=== PATIENT | female | born 1980 | race Caucasian/White ===

== ENCOUNTER → 2016-10-12 | Outpatient (CLI) | payer OTHER ==
[~2016-10-12] MED LIST: ABILIFY10 MG PO; ANTIVERT25 MG PO; AUGMENTIN 875875 MG PO; CLARITIN10 MG PO; DELTASONE20 M1 PO; HYCODAN 1.5 MG480 M1 PO; LAMICTAL150 MG PO; MOTRIN800 MG PO; NKHM; OMNICEF300 MG PO; PROAIR HFA8.5 GM INH; PROZAC20 MG PO; PROZAC40 M1 PO; Synthroid,Lev100 MCG PO; TESSALON PERLE100 M1 PO; TRAMADOL HCL50 MG PO; ZADITOR 5 ML5 M1 OPH; Zofran4 MG PO
== END | disposition home or self-care (01) ==
LOC: RAD 13:57
DX: M54.5 Low back pain (principal)

== ENCOUNTER 2016-11-29 14:55 | Emergency (ER) | payer OTHER ==
[~2016-11-29] VITALS: Ht 157.4 cm; Wt 83.9 kg
[2016-11-29 15:07] VITALS: BP 135/68
[2016-11-29] MEDS ORDERED: CYCLOBENZAPRINE10 MG PO (15:07)
[2016-11-29] MEDS ORDERED: LEVOTHYROXINE0.1 M1 PO (15:07)
[2016-11-29] MEDS ORDERED: FLUOXETINE HCL40 MG PO (15:07)
[2016-11-29] MEDS ORDERED: ZITHROMAX250 MG PO (16:08)
[2016-11-29] MEDS ORDERED: DELTASONE20 M1 PO (16:08)
== END 2016-11-29 16:13 | disposition home or self-care (01) ==
LOC: ED 14:55
DX: J40 Bronchitis, not specified as acute or chronic (principal); J45.909 Unspecified asthma, uncomplicated

== ENCOUNTER 2017-01-12 23:46 | Emergency (ER) | payer OTHER, MEDICAID ==
[~2017-01-12] VITALS: Ht 157.4 cm; Wt 83.9 kg
[~2017-01-12 23:46] MED LIST changes: +CYCLOBENZAPRINE10 MG PO; +FLUOXETINE HCL40 MG PO; +LEVOTHYROXINE0.1 M1 PO; +ZITHROMAX250 MG PO
[2017-01-12 23:51] VITALS: BP 131/85
[2017-01-12] MEDS ORDERED: PROZAC40 M1 PO (23:52)
[2017-01-12] MEDS ORDERED: LEVOTHYROXINE0.1 M1 PO (23:52)
[2017-01-13 00:26] LABS: BASO # 0.1 10*3/uL (0.0-0.1); BASO % 0.5 % (0.0-1.0); EOS # 0.2 10*3/uL (0.0-0.4); EOS % 1.6 % (1.0-4.0); HEMOGLOBIN 12.1 g/dl (12.0-16.0); LYMPH # 2.5 10*3/uL (1.3-4.4); LYMPH % 26.1 % (27.0-41.0); MEAN CELL VOLUME 82.2 fl (81.0-99.0); MEAN CORPUSCULAR HGB 27.6 pg (27.0-31.0); MEAN CORPUSCULAR HGB CONC 33.6 g/dl (33.0-37.0); MEAN PLATELET VOLUME 12.1 fl (9.6-12.3); MONO # 0.8 10*3/uL (0.1-1.0); MONO % 8.7 % (3.0-9.0); NEUT # 6.1 10*3/uL (2.3-7.9); NEUT % 62.8 % (47.0-73.0); PLATELET COUNT AUTOMATED 234 10*3/uL (130-400); RED BLOOD COUNT 4.38 10*6/uL (4.10-5.10); RED CELL DISTRI WIDTH 14.1 % (0-14.5); WHITE BLOOD COUNT 9.6 10*3/uL (4.8-10.8)
[2017-01-13 00:37] LABS: BUN 12 mg/dl (7-24); CARBON DIOXIDE 26 mmol/L (21-32); CHLORIDE 106 mmol/L (98-107); EST GLOM FILT AFRICAN AMERICAN > 60 ml/min; GLUCOSE 91 mg/dL (65-99); POTASSIUM 4.1 mmol/L (3.5-5.1); SODIUM 139 mmol/L (136-145)
[2017-01-13 00:43] LABS: C-REACTIVE PROTEIN < 0.29 MG/DL (0-0.3)
[2017-01-13] MEDS ORDERED: AMOXICILLIN500 M2 PO (01:02)
== END 2017-01-13 01:12 | disposition home or self-care (01) ==
LOC: ED 23:46
PROVIDERS: Emergency Medicine Emergency Medical Services
DX: I88.9 Nonspecific lymphadenitis, unspecified (principal); Z79.899 Other long term (current) drug therapy

== ENCOUNTER → 2017-01-15 | Outpatient (CLI) | payer OTHER, MEDICAID ==
[~2017-01-15] MED LIST changes: +AMOXICILLIN500 M2 PO
[2017-01-15 10:16] LABS: BASO % 0.4 % (0.0-1.0); EOS # 0.2 10*3/uL (0.0-0.4); HEMATOCRIT 38.9 % (37.0-47.0); HEMOGLOBIN 12.9 g/dl (12.0-16.0); LYMPH % 26.3 % (27.0-41.0); MEAN CELL VOLUME 83.3 fl (81.0-99.0); MEAN CORPUSCULAR HGB 27.6 pg (27.0-31.0); MEAN CORPUSCULAR HGB CONC 33.2 g/dl (33.0-37.0); MEAN PLATELET VOLUME 12.2 fl (9.6-12.3); MONO # 0.6 10*3/uL (0.1-1.0); MONO % 8.1 % (3.0-9.0); NEUT # 4.7 10*3/uL (2.3-7.9); NEUT % 63.1 % (47.0-73.0); PLATELET COUNT AUTOMATED 232 10*3/uL (130-400); RED BLOOD COUNT 4.67 10*6/uL (4.10-5.10); RED CELL DISTRI WIDTH 14.2 % (0-14.5); WHITE BLOOD COUNT 7.5 10*3/uL (4.8-10.8)
[2017-01-15 10:46] LABS: ALBUMIN 3.4 gm/dl (3.1-4.5); ALKALINE PHOSPHATASE 88 U/L (45-117); BILIRUBIN, TOTAL 0.5 mg/dl (0.2-1.0); BUN 9 mg/dl (7-24); CARBON DIOXIDE 25 mmol/L (21-32); CHLORIDE 107 mmol/L (98-107); CHOLESTEROL 179 mg/dL (<200); EST GLOM FILT AFRICAN AMERICAN > 60 ml/min; GLUCOSE 85 mg/dL (65-99); HDL CHOLESTEROL 50 mg/dl (40-60); LDL CHOLESTEROL 103 mg/dL (9-159); POTASSIUM 4.1 mmol/L (3.5-5.1); SGOT/AST 16 IU/L (3-35); SGPT/ALT 25 U/L (12-78); SODIUM 139 mmol/L (136-145); TOTAL PROTEIN 7.4 gm/dL (6.4-8.2); TRIGLYCERIDES 129 mg/dl (<150); VLDL CHOLESTEROL 26 mg/dL (6-40)
[2017-01-16 05:10] LABS: THYROID PEROXIDASE (TPO) AB 132 IU/mL (0-34)
[2017-01-18 15:08] LABS: THYROGLOBULIN ANTIBODY <1.0 IU/mL (0.0-0.9)
== END | disposition home or self-care (01) ==
LOC: LAB 09:54
PROVIDERS: Internal Medicine
DX: I88.9 Nonspecific lymphadenitis, unspecified (principal); E03.9 Hypothyroidism, unspecified; E06.3 Autoimmune thyroiditis; E66.09 Other obesity due to excess calories

== ENCOUNTER 2017-03-03 19:43 | Emergency (ER) | payer OTHER ==
[~2017-03-03] VITALS: Ht 157.4 cm; Wt 83.9 kg
[2017-03-03 20:07] VITALS: BP 128/68
[2017-03-03] MEDS ORDERED: AUGMENTIN 875875 MG PO (20:17)
[2017-03-03] MEDS ORDERED: FLONASE ALLERG9.9 ML NAS (20:17)
[2017-03-03] MEDS ORDERED: CLARITIN-D 24 H1 TAB PO (20:17)
== END 2017-03-03 20:53 | disposition home or self-care (01) ==
LOC: ED 19:43
DX: J01.10 Acute frontal sinusitis, unspecified (principal); Z79.899 Other long term (current) drug therapy

== ENCOUNTER 2017-07-04 21:56 | Emergency (ER) | payer OTHER ==
[~2017-07-04] VITALS: Ht 167.6 cm; Wt 68.0 kg
[~2017-07-04 21:56] MED LIST changes: +CLARITIN-D 24 H1 TAB PO; +FLONASE ALLERG9.9 ML NAS
[2017-07-04 22:15] VITALS: BP 154/84
[2017-07-04] MEDS ORDERED: HYCODAN/HYDROMET5 ML PO (23:45)
[2017-07-04] MEDS ORDERED: PROAIR HFA8.5 GM INH (23:45)
== END 2017-07-04 23:50 | disposition home or self-care (01) ==
LOC: ED 21:56
DX: R05 Cough (principal); F17.200 Nicotine dependence, unspecified, uncomplicated; Z79.899 Other long term (current) drug therapy

== ENCOUNTER 2017-10-03 13:00 | Emergency (ER) | payer OTHER ==
[~2017-10-03] VITALS: Ht 162.5 cm; Wt 65.8 kg
[~2017-10-03 13:00] MED LIST changes: +HYCODAN/HYDROMET5 ML PO
[2017-10-03] MEDS ORDERED: OMNICEF300 MG PO (13:19)
[2017-10-03] MEDS ORDERED: ZYRTEC10 MG PO (13:19)
[2017-10-03 13:32] VITALS: BP 112/60
== END 2017-10-03 13:26 | disposition home or self-care (01) ==
LOC: ED 13:00
DX: J06.9 Acute upper respiratory infection, unspecified (principal); H66.92 Otitis media, unspecified, left ear; Z79.899 Other long term (current) drug therapy

== ENCOUNTER → 2017-10-30 | Outpatient (CLI) | payer OTHER ==
[~2017-10-30] MED LIST changes: +ZYRTEC10 MG PO
[2017-10-30 10:50] LABS: BASO % 0.8 % (0.0-1.0); EOS # 0.1 10*3/uL (0.0-0.4); EOS % 2.4 % (1.0-4.0); HEMATOCRIT 39.8 % (37.0-47.0); HEMOGLOBIN 13.1 g/dl (12.0-16.0); LYMPH # 1.7 10*3/uL (1.3-4.4); LYMPH % 33.8 % (27.0-41.0); MEAN CELL VOLUME 84.5 fl (81.0-99.0); MEAN CORPUSCULAR HGB 27.8 pg (27.0-31.0); MEAN CORPUSCULAR HGB CONC 32.9 g/dl (33.0-37.0); MEAN PLATELET VOLUME 12.9 fl (9.6-12.3); MONO # 0.5 10*3/uL (0.1-1.0); MONO % 9.8 % (3.0-9.0); NEUT # 2.7 10*3/uL (2.3-7.9); PLATELET COUNT AUTOMATED 243 10*3/uL (130-400); RED BLOOD COUNT 4.71 10*6/uL (4.10-5.10); RED CELL DISTRI WIDTH 14.7 % (0-14.5)
[2017-10-30 11:15] LABS: ALBUMIN 3.8 gm/dl (3.1-4.5); ALKALINE PHOSPHATASE 75 U/L (45-117); BUN 10 mg/dl (7-24); CHLORIDE 107 mmol/L (98-107); CHOLESTEROL 203 mg/dL (<200); CREATININE 0.81 mg/dL (0.55-1.02); HDL CHOLESTEROL 57 mg/dl (40-60); LDL CHOLESTEROL 130 mg/dL (9-159); POTASSIUM 3.9 mmol/L (3.5-5.1); SGOT/AST 16 IU/L (3-35); SGPT/ALT 20 U/L (12-78); SODIUM 138 mmol/L (136-145); TOTAL PROTEIN 7.5 gm/dL (6.4-8.2); TRIGLYCERIDES 79 mg/dl (<150); VLDL CHOLESTEROL 16 mg/dL (6-40)
== END | disposition home or self-care (01) ==
LOC: LAB 10:09
PROVIDERS: Internal Medicine
DX: E06.3 Autoimmune thyroiditis (principal); R53.83 Other fatigue; E66.09 Other obesity due to excess calories

== ENCOUNTER 2017-11-30 00:41 | Emergency (ER) | payer SELFPAY ==
[~2017-11-30] VITALS: Ht 160 cm; Wt 81.6 kg
[2017-11-30 01:10] LABS: BASO # 0.1 10*3/uL (0.0-0.1); BASO % 0.7 % (0.0-1.0); EOS # 0.4 10*3/uL (0.0-0.4); EOS % 3.2 % (1.0-4.0); HEMATOCRIT 40.3 % (37.0-47.0); HEMOGLOBIN 13.2 g/dl (12.0-16.0); LYMPH # 3.1 10*3/uL (1.3-4.4); LYMPH % 24.7 % (27.0-41.0); MEAN CELL VOLUME 85.2 fl (81.0-99.0); MEAN CORPUSCULAR HGB 27.9 pg (27.0-31.0); MEAN CORPUSCULAR HGB CONC 32.8 g/dl (33.0-37.0); MEAN PLATELET VOLUME 12.7 fl (9.6-12.3); NEUT % 63.2 % (47.0-73.0); PLATELET COUNT AUTOMATED 270 10*3/uL (130-400); RED BLOOD COUNT 4.73 10*6/uL (4.10-5.10); RED CELL DISTRI WIDTH 14.4 % (0-14.5); WHITE BLOOD COUNT 12.7 10*3/uL (4.8-10.8)
[2017-11-30 01:17] LABS: BILIRUBIN NEGATIVE (NEGATIVE); BLOOD 2+ (NEGATIVE); CLARITY CLEAR (CLEAR); COLOR YELLOW (YELLOW); GLUCOSE NEGATIVE (NEGATIVE); KETONE NEGATIVE (NEGATIVE); LEUKO ESTERASE 1+ (NEGATIVE); NITRITE NEGATIVE (NEGATIVE); UROBILINOGEN 0.2 E.U./dl (0.2-1.0)
[2017-11-30 01:25] LABS: ALBUMIN 3.7 gm/dl (3.1-4.5); ALKALINE PHOSPHATASE 82 U/L (45-117); BUN 11 mg/dl (7-24); CHLORIDE 105 mmol/L (98-107); CREATININE 0.87 mg/dL (0.55-1.02); LIPASE 166 U/L (73-393); SGOT/AST 21 IU/L (3-35); SGPT/ALT 28 U/L (12-78); SODIUM 139 mmol/L (136-145); TOTAL PROTEIN 7.8 gm/dL (6.4-8.2)
[2017-11-30 01:25] LABS: BACTERIA 1+
[2017-11-30] MEDS ORDERED: SEPTDS PO (02:25)
[2017-11-30 02:29] VITALS: BP 110/72
[2017-11-30] MEDS ORDERED: SINGULAIR10 M1 PO (02:34)
== END 2017-11-30 02:28 | disposition home or self-care (01) ==
LOC: ED 00:41
PROVIDERS: Nurse Practitioner Family
DX: N39.0 Urinary tract infection, site not specified (principal); J01.10 Acute frontal sinusitis, unspecified; N83.202 Unspecified ovarian cyst, left side; R31.9 Hematuria, unspecified; Z79.899 Other long term (current) drug therapy

== ENCOUNTER → 2017-12-21 | Outpatient (CLI) | payer OTHER ==
[~2017-12-21] MED LIST changes: +MACROBID100 M1 PO; +SEPTDS PO; +SINGULAIR10 M1 PO
== END | disposition home or self-care (01) ==
LOC: US 14:51
DX: N83.202 Unspecified ovarian cyst, left side (principal)

== ENCOUNTER 2017-12-31 20:59 | Emergency (ER) | payer OTHER ==
[~2017-12-31] VITALS: Wt 83.9 kg
[~2017-12-31 20:59] MED LIST changes: -MACROBID100 M1 PO
[2017-12-31 21:01] VITALS: BP 119/78
[2017-12-31 21:21] LABS: BILIRUBIN NEGATIVE (NEGATIVE); BLOOD NEGATIVE (NEGATIVE); CLARITY CLEAR (CLEAR); COLOR YELLOW (YELLOW); GLUCOSE NEGATIVE (NEGATIVE); KETONE NEGATIVE (NEGATIVE); LEUKO ESTERASE 1+ (NEGATIVE); NITRITE NEGATIVE (NEGATIVE); PH 5.5 (5.0-9.0); SPECIFIC GRAVITY 1.015 (1.005-1.030); UROBILINOGEN 0.2 E.U./dl (0.2-1.0)
[2017-12-31 22:41] LABS: BASO # 0.1 10*3/uL (0.0-0.1); BASO % 0.6 % (0.0-1.0); EOS # 0.2 10*3/uL (0.0-0.4); EOS % 1.9 % (1.0-4.0); HEMATOCRIT 39.2 % (37.0-47.0); HEMOGLOBIN 12.9 g/dl (12.0-16.0); LYMPH # 2.6 10*3/uL (1.3-4.4); LYMPH % 29.1 % (27.0-41.0); MEAN CELL VOLUME 85.4 fl (81.0-99.0); MEAN CORPUSCULAR HGB 28.1 pg (27.0-31.0); MEAN CORPUSCULAR HGB CONC 32.9 g/dl (33.0-37.0); MEAN PLATELET VOLUME 12.5 fl (9.6-12.3); MONO # 0.9 10*3/uL (0.1-1.0); MONO % 9.8 % (3.0-9.0); NEUT # 5.2 10*3/uL (2.3-7.9); NEUT % 58.4 % (47.0-73.0); PLATELET COUNT AUTOMATED 237 10*3/uL (130-400); RED BLOOD COUNT 4.59 10*6/uL (4.10-5.10); RED CELL DISTRI WIDTH 14.3 % (0-14.5); WHITE BLOOD COUNT 8.9 10*3/uL (4.8-10.8)
[2017-12-31 22:56] LABS: ALKALINE PHOSPHATASE 74 U/L (45-117); BUN 17 mg/dl (7-24); CHLORIDE 107 mmol/L (98-107); CREATININE 0.79 mg/dL (0.55-1.02); POTASSIUM 4.1 mmol/L (3.5-5.1); SGOT/AST 14 IU/L (3-35); SGPT/ALT 24 U/L (12-78); SODIUM 142 mmol/L (136-145); TOTAL PROTEIN 7.8 gm/dL (6.4-8.2)
[2017-12-31] MEDS ORDERED: MACROBID100 M1 PO (23:07)
== END 2017-12-31 23:39 | disposition home or self-care (01) ==
LOC: ED 20:59
PROVIDERS: Emergency Medicine; Nurse Practitioner Family
DX: N39.0 Urinary tract infection, site not specified (principal); Z79.51 Long term (current) use of inhaled steroids; Z79.899 Other long term (current) drug therapy

== ENCOUNTER 2018-01-26 19:33 | Emergency (ER) | payer OTHER ==
[~2018-01-26] VITALS: Ht 157.4 cm; Wt 83.9 kg
[~2018-01-26 19:33] MED LIST changes: +MACROBID100 M1 PO
[2018-01-26 19:37] VITALS: BP 119/70
[2018-01-26 20:21] LABS: BASO # 0.1 10*3/uL (0.0-0.1); BASO % 0.7 % (0.0-1.0); EOS # 0.1 10*3/uL (0.0-0.4); EOS % 1.4 % (1.0-4.0); HEMATOCRIT 41.4 % (37.0-47.0); HEMOGLOBIN 13.5 g/dl (12.0-16.0); LYMPH # 2.5 10*3/uL (1.3-4.4); LYMPH % 25.9 % (27.0-41.0); MEAN CORPUSCULAR HGB 27.7 pg (27.0-31.0); MEAN CORPUSCULAR HGB CONC 32.6 g/dl (33.0-37.0); MEAN PLATELET VOLUME 12.5 fl (9.6-12.3); MONO # 0.7 10*3/uL (0.1-1.0); MONO % 7.3 % (3.0-9.0); NEUT # 6.2 10*3/uL (2.3-7.9); NEUT % 64.5 % (47.0-73.0); PLATELET COUNT AUTOMATED 251 10*3/uL (130-400); RED BLOOD COUNT 4.87 10*6/uL (4.10-5.10); WHITE BLOOD COUNT 9.6 10*3/uL (4.8-10.8)
[2018-01-26 20:32] LABS: BILIRUBIN NEGATIVE (NEGATIVE); BLOOD NEGATIVE (NEGATIVE); CLARITY CLEAR (CLEAR); COLOR YELLOW (YELLOW); GLUCOSE NEGATIVE (NEGATIVE); KETONE NEGATIVE (NEGATIVE); LEUKO ESTERASE TRACE (NEGATIVE); NITRITE NEGATIVE (NEGATIVE); SPECIFIC GRAVITY >= 1.030 (1.005-1.030); UROBILINOGEN 0.2 E.U./dl (0.2-1.0)
[2018-01-26 20:37] LABS: ALBUMIN 4.1 gm/dl (3.1-4.5); ALKALINE PHOSPHATASE 83 U/L (45-117); BUN 14 mg/dl (7-24); CHLORIDE 105 mmol/L (98-107); LIPASE 153 U/L (73-393); POTASSIUM 3.7 mmol/L (3.5-5.1); SGOT/AST 15 IU/L (3-35); SGPT/ALT 25 U/L (12-78); SODIUM 139 mmol/L (136-145)
[2018-01-26 20:40] LABS: MUCOUS TRACE
[2018-01-26] MEDS ORDERED: NAPROSYN500 MG PO (21:07)
== END 2018-01-26 21:13 | disposition home or self-care (01) ==
LOC: ED 19:33
PROVIDERS: Physician Assistant
DX: R10.9 Unspecified abdominal pain (principal); N93.9 Abnormal uterine and vaginal bleeding, unspecified; R31.9 Hematuria, unspecified; Z79.899 Other long term (current) drug therapy

== ENCOUNTER 2018-08-01 16:12 | Emergency (ER) | payer BC ==
[~2018-08-01] VITALS: Ht 160 cm; Wt 88.5 kg
[~2018-08-01 16:12] MED LIST changes: +NAPROSYN500 MG PO
[2018-08-01 18:00] VITALS: BP 118/68
[2018-08-01 18:21] LABS: BILIRUBIN NEGATIVE (NEGATIVE); BLOOD NEGATIVE (NEGATIVE); CLARITY CLEAR (CLEAR); COLOR YELLOW (YELLOW); GLUCOSE NEGATIVE (NEGATIVE); KETONE NEGATIVE (NEGATIVE); LEUKO ESTERASE TRACE (NEGATIVE); NITRITE NEGATIVE (NEGATIVE); PH 5.5 (5.0-9.0); SPECIFIC GRAVITY 1.025 (1.005-1.030); UROBILINOGEN 0.2 E.U./dl (0.2-1.0)
[2018-08-01 18:55] LABS: BACTERIA 2+; MUCOUS 1+; RBC 0-2 rbc/hpf (0-2)
[2018-08-01] MEDS ORDERED: HYCODAN/HYDROMET5 ML PO (19:51)
[2018-08-01] MEDS ORDERED: TESSALON PERLE100 M1 PO (19:51)
[2018-08-01] MEDS ORDERED: ZOFRAN4 MG PO (19:51)
== END 2018-08-01 20:20 | disposition home or self-care (01) ==
LOC: ED 16:12
PROVIDERS: Physician Assistant
DX: B34.9 Viral infection, unspecified (principal); R10.31 Right lower quadrant pain; J45.909 Unspecified asthma, uncomplicated; Z79.2 Long term (current) use of antibiotics; Z79.899 Other long term (current) drug therapy

== ENCOUNTER → 2018-10-28 | Outpatient (CLI) | payer BC, OTHER ==
[~2018-10-28] MED LIST changes: +ULTRAM50 MG PO; +ZOFRAN4 MG PO
== END | disposition home or self-care (01) ==
LOC: US 14:12
DX: R10.9 Unspecified abdominal pain (principal); Z87.42 Personal history of other diseases of the female genital tract

== ENCOUNTER 2019-02-15 21:15 | Emergency (ER) | payer BC, OTHER ==
[~2019-02-15] VITALS: Ht 157.4 cm; Wt 90.7 kg
[2019-02-15 21:15] VITALS: BP 123/76
[2019-02-15] MEDS ORDERED: NAPROSYN500 MG PO (21:58)
[2019-02-15] MEDS ORDERED: Orphenadrine C100 MG PO (21:58)
== END 2019-02-15 22:13 | disposition home or self-care (01) ==
LOC: ED 21:15
DX: S39.012A Strain of muscle, fascia and tendon of lower back, initial encounter (principal); Z79.2 Long term (current) use of antibiotics; Z79.899 Other long term (current) drug therapy; X50.1XXA Overexertion from prolonged static or awkward postures, initial encounter; Y93.89 Activity, other specified; Y92.098 Other place in other non-institutional residence as the place of occurrence of the external cause; Y99.8 Other external cause status

== ENCOUNTER → 2019-05-11 | Outpatient (CLI) | payer BC, OTHER ==
[~2019-05-11] MED LIST changes: +Orphenadrine C100 MG PO
== END | disposition home or self-care (01) ==
LOC: US 11:21
DX: R59.9 Enlarged lymph nodes, unspecified (principal)

== ENCOUNTER → 2020-03-15 | Outpatient (CLI) | payer OTHER | END | disposition home or self-care (01) | LOC: COVID19 14:51 | PROVIDERS: ATTEND Family Medicine | DX: Z20.828 Contact with and (suspected) exposure to other viral communicable diseases (principal) ==

== ENCOUNTER → 2020-04-10 | Outpatient (CLI) | payer OTHER ==
[2020-04-10 09:23] LABS: HEMATOCRIT 39.8 % (37.0-47.0); MEAN CELL VOLUME 82.1 fl (81.0-99.0); MEAN CORPUSCULAR HGB CONC 32.9 g/dl (33.0-37.0); MEAN PLATELET VOLUME 11.8 fl (9.6-12.3); RED BLOOD COUNT 4.85 10*6/uL (4.10-5.10); RED CELL DISTRI WIDTH 13.9 % (0-14.5); WHITE BLOOD COUNT 6.3 10*3/uL (4.8-10.8)
[2020-04-10 09:39] LABS: ALBUMIN 3.8 gm/dl (3.1-4.5); ALKALINE PHOSPHATASE 88 U/L (45-117); BUN 13 mg/dl (7-24); CHLORIDE 109 mmol/L (98-107); CHOLESTEROL 179 mg/dL (<200); CREATININE 0.82 mg/dL (0.55-1.02); HDL CHOLESTEROL 48 mg/dl (40-60); LDL CHOLESTEROL 115 mg/dL (9-159); POTASSIUM 4.1 mmol/L (3.5-5.1); SGOT/AST 17 IU/L (3-35); SGPT/ALT 26 U/L (12-78); SODIUM 138 mmol/L (136-145); TOTAL PROTEIN 7.7 gm/dL (6.4-8.2); TRIGLYCERIDES 79 mg/dl (<150); VLDL CHOLESTEROL 16 mg/dL (6-40)
[2020-04-10 09:40] LABS: FREE T4 1.11 ng/dl (0.76-1.46)
[2020-04-10 09:45] LABS: THYROID STIM HORMONE (HS) 0.315 uIU/ml (0.358-4.75)
[2020-04-10 10:08] LABS: VITAMIN D, 25-HYDROXY 29.1 ng/mL (30-100)
== END | disposition home or self-care (01) ==
LOC: LAB 09:04
PROVIDERS: ATTEND Family Medicine
DX: E55.9 Vitamin D deficiency, unspecified (principal); E78.00 Pure hypercholesterolemia, unspecified; R53.83 Other fatigue; G47.33 Obstructive sleep apnea (adult) (pediatric); R63.5 Abnormal weight gain

== ENCOUNTER → 2020-08-20 | Outpatient (CLI) | payer OTHER ==
[2020-08-20 10:33] LABS: MEAN CELL VOLUME 85.1 fl (81.0-99.0); MEAN CORPUSCULAR HGB 27.9 pg (27.0-31.0); MEAN CORPUSCULAR HGB CONC 32.8 g/dl (33.0-37.0); RED BLOOD COUNT 4.7 10*6/uL (4.10-5.10); WHITE BLOOD COUNT 7.2 10*3/uL (4.8-10.8)
[2020-08-20 10:50] LABS: ALBUMIN 3.3 gm/dl (3.1-4.5); ALKALINE PHOSPHATASE 95 U/L (45-117); BUN 10 mg/dl (7-24); CHLORIDE 106 mmol/L (98-107); CREATININE 0.78 mg/dL (0.55-1.02); POTASSIUM 4.5 mmol/L (3.5-5.1); SGOT/AST 24 IU/L (3-35); SGPT/ALT 35 U/L (12-78); SODIUM 137 mmol/L (136-145); TOTAL PROTEIN 7.5 gm/dL (6.4-8.2)
[2020-08-20 10:56] LABS: THYROID STIM HORMONE (HS) 0.498 uIU/ml (0.358-4.75)
[2020-08-20 10:59] LABS: FREE T4 0.97 ng/dl (0.76-1.46)
== END | disposition home or self-care (01) ==
LOC: LAB 09:47
PROVIDERS: ATTEND Family Medicine
DX: E03.9 Hypothyroidism, unspecified (principal); E55.9 Vitamin D deficiency, unspecified; E78.00 Pure hypercholesterolemia, unspecified; D64.9 Anemia, unspecified

== ENCOUNTER → 2020-09-18 | Outpatient (CLI) | payer OTHER | LOC: COVID19 08:06 | PROVIDERS: ATTEND Family Medicine | DX: R05 Cough (principal); R09.81 Nasal congestion; Z20.822 Contact with and (suspected) exposure to COVID-19 ==

== ENCOUNTER 2021-07-08 00:25 | Emergency (ER) | payer OTHER ==
[~2021-07-08] VITALS: Ht 160 cm; Wt 99.8 kg
[2021-07-08 00:44] VITALS: BP 119/74
[2021-07-08 02:57] LABS: BASO % 0.6 % (0.0-1.0); EOS # 0.3 10*3/uL (0.0-0.4); EOS % 3.7 % (1.0-4.0); HEMATOCRIT 38.7 % (37.0-47.0); LYMPH # 0.8 10*3/uL (1.3-4.4); LYMPH % 10.7 % (27.0-41.0); MEAN CELL VOLUME 82.9 fl (81.0-99.0); MEAN CORPUSCULAR HGB 27.8 pg (27.0-31.0); MEAN CORPUSCULAR HGB CONC 33.6 g/dl (33.0-37.0); MEAN PLATELET VOLUME 11.3 fl (9.6-12.3); MONO # 0.8 10*3/uL (0.1-1.0); MONO % 11.7 % (3.0-9.0); NEUT # 5.2 10*3/uL (2.3-7.9); PLATELET COUNT AUTOMATED 265 10*3/uL (130-400); RED BLOOD COUNT 4.67 10*6/uL (4.10-5.10); RED CELL DISTRI WIDTH 13.8 % (0-14.5); WHITE BLOOD COUNT 7.1 10*3/uL (4.8-10.8)
[2021-07-08 03:14] LABS: ALBUMIN 3.4 gm/dl (3.1-4.5); ALKALINE PHOSPHATASE 90 U/L (45-117); BUN 11 mg/dl (7-24); CHLORIDE 106 mmol/L (98-107); CREATININE 0.78 mg/dL (0.55-1.02); POTASSIUM 3.9 mmol/L (3.5-5.1); SGOT/AST 10 IU/L (3-35); SGPT/ALT 24 U/L (12-78); SODIUM 135 mmol/L (136-145); TOTAL PROTEIN 7.4 gm/dL (6.4-8.2)
== END 2021-07-08 04:35 | disposition home or self-care (01) ==
LOC: ED 00:25
PROVIDERS: Internal Medicine
DX: U07.1 COVID-19 (principal); B34.9 Viral infection, unspecified; R79.82 Elevated C-reactive protein (CRP); E87.1 Hypo-osmolality and hyponatremia; Z79.899 Other long term (current) drug therapy

== ENCOUNTER → 2021-08-21 | Outpatient (CLI) | payer OTHER ==
[2021-08-21 09:51] LABS: BASO # 0.1 10*3/uL (0.0-0.1); BASO % 0.7 % (0.0-1.0); EOS # 0.2 10*3/uL (0.0-0.4); EOS % 1.9 % (1.0-4.0); HEMATOCRIT 39.7 % (37.0-47.0); LYMPH # 2.1 10*3/uL (1.3-4.4); LYMPH % 23.5 % (27.0-41.0); MEAN CELL VOLUME 81.9 fl (81.0-99.0); MEAN CORPUSCULAR HGB 27.2 pg (27.0-31.0); MEAN CORPUSCULAR HGB CONC 33.2 g/dl (33.0-37.0); MEAN PLATELET VOLUME 11.2 fl (9.6-12.3); MONO # 0.8 10*3/uL (0.1-1.0); MONO % 9.2 % (3.0-9.0); NEUT # 5.8 10*3/uL (2.3-7.9); NEUT % 64.5 % (47.0-73.0); PLATELET COUNT AUTOMATED 299 10*3/uL (130-400); RED BLOOD COUNT 4.85 10*6/uL (4.10-5.10); RED CELL DISTRI WIDTH 13.9 % (0-14.5)
[2021-08-21 10:02] LABS: BUN 13 mg/dl (7-24); CHLORIDE 109 mmol/L (98-107); POTASSIUM 4.1 mmol/L (3.5-5.1); SODIUM 138 mmol/L (136-145)
[2021-08-21 10:12] LABS: THYROID STIM HORMONE (HS) 0.074 uIU/ml (0.358-4.75)
== END | disposition home or self-care (01) ==
LOC: LAB 09:33
PROVIDERS: ATTEND Family Medicine
DX: E06.3 Autoimmune thyroiditis (principal); J45.909 Unspecified asthma, uncomplicated

== ENCOUNTER → 2021-10-07 | Outpatient (CLI) | payer OTHER | END | disposition home or self-care (01) | LOC: MAMMO 10-06 10:00 | PROVIDERS: ATTEND Family Medicine | DX: Z12.31 Encounter for screening mammogram for malignant neoplasm of breast (principal); N64.89 Other specified disorders of breast ==

== ENCOUNTER 2022-03-04 06:34 | Emergency (ER) | payer OTHER ==
[~2022-03-04] VITALS: Ht 160 cm; Wt 65.8 kg
[2022-03-04 06:38] VITALS: BP 102/57
[2022-03-04] MEDS ORDERED: NAPHCON-A EYE D15 ML OP (06:45)
[2022-03-04] MEDS ORDERED: PREDNISONE20 M1 PO (06:45)
[2022-03-04] MEDS ORDERED: ERYTHROMYCIN OPH1 GM OPH (06:45)
== END 2022-03-04 06:53 | disposition home or self-care (01) ==
LOC: ED 06:34
DX: H10.9 Unspecified conjunctivitis (principal); Z91.048 Other nonmedicinal substance allergy status; Z79.2 Long term (current) use of antibiotics; Z79.899 Other long term (current) drug therapy

== ENCOUNTER 2022-05-22 18:57 | Emergency (ER) | payer OTHER ==
[~2022-05-22] VITALS: Ht 160 cm; Wt 99.8 kg
[~2022-05-22 18:57] MED LIST changes: +ERYTHROMYCIN OPH1 GM OPH; +NAPHCON-A EYE D15 ML OP; +PREDNISONE20 M1 PO
[2022-05-22 19:10] VITALS: BP 128/73
[2022-05-22 19:48] LABS: BASO # 0.1 10*3/uL (0.0-0.1); BASO % 0.5 % (0.0-1.0); EOS # 0.2 10*3/uL (0.0-0.4); EOS % 2.5 % (1.0-4.0); HEMATOCRIT 37.6 % (37.0-47.0); LYMPH # 0.7 10*3/uL (1.3-4.4); LYMPH % 7.5 % (27.0-41.0); MEAN CELL VOLUME 84.3 fl (81.0-99.0); MEAN CORPUSCULAR HGB 28.3 pg (27.0-31.0); MEAN CORPUSCULAR HGB CONC 33.5 g/dl (33.0-37.0); MEAN PLATELET VOLUME 11.9 fl (9.6-12.3); MONO # 0.6 10*3/uL (0.1-1.0); MONO % 6.5 % (3.0-9.0); NEUT # 7.6 10*3/uL (2.3-7.9); NEUT % 82.8 % (47.0-73.0); PLATELET COUNT AUTOMATED 236 10*3/uL (130-400); RED BLOOD COUNT 4.46 10*6/uL (4.10-5.10); WHITE BLOOD COUNT 9.1 10*3/uL (4.8-10.8)
[2022-05-22 20:11] LABS: ALKALINE PHOSPHATASE 86 U/L (45-117); BUN 11 mg/dl (7-24); CHLORIDE 109 mmol/L (98-107); CREATININE 0.92 mg/dL (0.55-1.02); POTASSIUM 4.1 mmol/L (3.5-5.1); SGPT/ALT 28 U/L (12-78); SODIUM 138 mmol/L (136-145); TOTAL PROTEIN 7.4 gm/dL (6.4-8.2)
[2022-05-22] MEDS ORDERED: ZITHROMAX250 MG PO (21:46)
[2022-05-22] MEDS ORDERED: MEDROL DOSEPAK4 MG PO (21:46)
== END 2022-05-22 22:30 | disposition home or self-care (01) ==
LOC: ED 18:57
PROVIDERS: Nurse Practitioner Family
DX: J06.9 Acute upper respiratory infection, unspecified (principal); Z20.822 Contact with and (suspected) exposure to COVID-19; Z79.899 Other long term (current) drug therapy

== ENCOUNTER 2023-03-15 19:31 | Emergency (ER) | payer OTHER ==
[~2023-03-15] VITALS: Ht 160 cm; Wt 99.8 kg
[~2023-03-15 19:31] MED LIST changes: +MEDROL DOSEPAK4 MG PO
[2023-03-15 23:19] VITALS: BP 128/58
[2023-03-16] MEDS ORDERED: BENZONATATE100 M1 PO (02:51)
== END 2023-03-16 02:56 | disposition home or self-care (01) ==
LOC: ED 19:31
DX: J06.9 Acute upper respiratory infection, unspecified (principal); R05.9 Cough, unspecified; J45.909 Unspecified asthma, uncomplicated; F32.A Depression, unspecified; Z98.890 Other specified postprocedural states; Z87.891 Personal history of nicotine dependence; Z20.822 Contact with and (suspected) exposure to COVID-19

== ENCOUNTER 2023-06-16 18:49 | Emergency (ER) | payer OTHER ==
[~2023-06-16] VITALS: Ht 149.8 cm; Wt 49.9 kg
[~2023-06-16 18:49] MED LIST changes: +BENZONATATE100 M1 PO
[2023-06-16 18:53] VITALS: BP 121/82
[2023-06-16] MEDS ORDERED: CYCLOBENZAPRINE5 M3 PO (19:02)
[2023-06-16] MEDS ORDERED: XANAX0.5 MG PO (19:03)
[2023-06-16] MEDS ORDERED: VRAYLAR4.5 MG PO (19:34)
[2023-06-16] MEDS ORDERED: LEVOTHYROXINE150 MCG PO (19:34)
[2023-06-16] MEDS ORDERED: SERTRALINE HYDR50 MG PO (19:34)
[2023-06-16] MEDS ORDERED: PROVENTIL HFA6.7 GM INH (21:30)
[2023-06-16] MEDS ORDERED: MEDROL DOSEPAK4 MG PO (21:30)
== END 2023-06-16 21:47 | disposition home or self-care (01) ==
LOC: ED 18:49
DX: J06.9 Acute upper respiratory infection, unspecified (principal); J45.901 Unspecified asthma with (acute) exacerbation; R51.9 Headache, unspecified; F32.A Depression, unspecified; E03.9 Hypothyroidism, unspecified; Z98.890 Other specified postprocedural states; Z87.891 Personal history of nicotine dependence; Z20.822 Contact with and (suspected) exposure to COVID-19

== ENCOUNTER 2023-11-30 16:12 | Emergency (ER) | payer OTHER ==
[~2023-11-30] VITALS: Ht 157.4 cm; Wt 99.8 kg
[~2023-11-30 16:12] MED LIST changes: +CYCLOBENZAPRINE5 M3 PO; +LEVOTHYROXINE150 MCG PO; +PROVENTIL HFA6.7 GM INH; +SERTRALINE HYDR50 MG PO; +VRAYLAR4.5 MG PO; +XANAX0.5 MG PO
[2023-11-30 16:56] VITALS: BP 116/50
== END 2023-11-30 19:17 | disposition home or self-care (01) ==
LOC: ED 16:12
DX: M25.531 Pain in right wrist (principal); Z79.899 Other long term (current) drug therapy; X58.XXXA Exposure to other specified factors, initial encounter; Y93.89 Activity, other specified; Y92.89 Other specified places as the place of occurrence of the external cause; Y99.8 Other external cause status

== ENCOUNTER 2024-04-15 12:27 | Emergency (ER) | payer BC ==
[~2024-04-15] VITALS: Ht 160 cm; Wt 99.8 kg
[2024-04-15 12:41] VITALS: BP 114/75
== END 2024-04-15 15:09 ==
LOC: ED 12:27
DX: R05.9 Cough, unspecified (principal); J45.909 Unspecified asthma, uncomplicated; F32.A Depression, unspecified; Z53.21 Procedure and treatment not carried out due to patient leaving prior to being seen by health care provider

== ENCOUNTER 2024-11-20 14:22 | Emergency (ER) | payer BC ==
[~2024-11-20] VITALS: Ht 160 cm; Wt 110.0 kg
[2024-11-20 14:36] VITALS: BP 106/64
[2024-11-20] MEDS ORDERED: Albuterol Sulf/Ipratropium 3 ML VIAL NEB ONE (14:45)
[2024-11-20 15:30] LABS: BASO # 0.1 10*3/uL (0.0-0.1); BASO % 0.6 % (0.0-1.0); EOS # 0.5 10*3/uL (0.0-0.4); EOS % 5.9 % (1.0-4.0); HEMATOCRIT 38.1 % (37.0-47.0); MEAN CELL VOLUME 85.8 fl (81.0-99.0); MEAN CORPUSCULAR HGB 27.7 pg (27.0-31.0); MEAN CORPUSCULAR HGB CONC 32.3 g/dl (33.0-37.0); MONO # 0.8 10*3/uL (0.1-1.0); MONO % 9.2 % (3.0-9.0); NEUT # 5.2 10*3/uL (2.3-7.9); NEUT % 59.1 % (47.0-73.0); PLATELET COUNT AUTOMATED 264 10*3/uL (130-400); RED BLOOD COUNT 4.44 10*6/uL (4.10-5.10); RED CELL DISTRI WIDTH 14.1 % (0-14.5); WHITE BLOOD COUNT 8.8 10*3/uL (4.8-10.8)
[2024-11-20 15:51] LABS: BUN 10 mg/dl (9-23); CHLORIDE 104 mmol/L (98-107); POTASSIUM 3.5 mmol/L (3.4-5.1)
[2024-11-20] MEDS ORDERED: PREDNISONE20 M1 PO (15:57)
[2024-11-20] MEDS ORDERED: ZITHROMAX250 MG PO (15:57)
[2024-11-20] MEDS ORDERED: ALBUTEROL 8 GM INHALER INH ONE (16:00)
[2024-11-20] MEDS ORDERED: predniSONE 20 MG TAB PO ONE (16:00)
[2024-11-20] MEDS ORDERED: AZITHROMYCIN 250 MG TAB PO ONE (16:00)
== END 2024-11-20 16:20 | disposition home or self-care (01) ==
LOC: ED 14:22
PROVIDERS: Nurse Practitioner Family
DX: J98.4 Other disorders of lung (principal); J45.909 Unspecified asthma, uncomplicated; Z20.822 Contact with and (suspected) exposure to COVID-19; F32.A Depression, unspecified; Z98.890 Other specified postprocedural states

== ENCOUNTER 2025-06-07 10:37 | Emergency (ER) | payer BC ==
[~2025-06-07] VITALS: Wt 99.8 kg
[2025-06-07 10:48] VITALS: BP 119/57
[2025-06-07] MEDS ORDERED: PREDNISONE20 M1 PO (12:14)
[2025-06-07] MEDS ORDERED: AZITHROMYCIN 250 MG TAB PO ONE (12:15)
[2025-06-07] MEDS ORDERED: AVPAK AZITHROM250 M1 PO (12:15)
== END 2025-06-07 12:28 | disposition home or self-care (01) ==
LOC: ED 10:37
DX: F32.A Depression, unspecified (principal); J45.909 Unspecified asthma, uncomplicated; Z87.440 Personal history of urinary (tract) infections